=== PATIENT | female | born 1955 | race Caucasian/White ===

== ENCOUNTER → 2021-01-20 | Outpatient (CLI) | payer OTHER ==
[~2021-01-20] VITALS: Ht 149.9 cm; Wt 68.5 kg
[~2021-01-20] MED LIST: CLARITIN10 M3 PO; CRESTOR5 MG PO; HAIR, SKIN & N1 EAC2 PO; MELOXICAM15 MG PO; OMEPRAZOLE 20 M20 M1 PO; SINGULAIR 10 MG10 MG PO; TYLENOL EXTRA500 MG PO; VENTOLIN HFA INH8 GM INH; VITAMIN C250 M1 PO; VITAMIN D31250 MC1 PO; VITAMIN E400 UNIT PO; ZETIA10 MG PO
== END | disposition home or self-care (01) ==
LOC: GI 07:35 → EDSTATUS 11:20 → GI 11:23
PROVIDERS: ATTEND Internal Medicine Gastroenterology
DX: K62.5 Hemorrhage of anus and rectum (principal); R19.5 Other fecal abnormalities; K57.30 Diverticulosis of large intestine without perforation or abscess without bleeding; K64.8 Other hemorrhoids; R12 Heartburn; K21.9 Gastro-esophageal reflux disease without esophagitis; I10 Essential (primary) hypertension; E78.00 Pure hypercholesterolemia, unspecified; J45.909 Unspecified asthma, uncomplicated; M19.90 Unspecified osteoarthritis, unspecified site; Z86.010 Personal history of colon polyps; Z98.890 Other specified postprocedural states; Z79.899 Other long term (current) drug therapy; Z87.891 Personal history of nicotine dependence
CPT/HCPCS: 62110; 62900